=== PATIENT | male | born 1995 | race Caucasian/White ===

== ENCOUNTER 2018-07-31 08:44 | Emergency (ER) | payer BC ==
--- NOTE | 2018-07-31 10:00 | ED ---
Back Pain HPI - General Chief Complaint: Back Pain/Injury Stated Complaint: Lower back pain Time Seen by Provider: 07/31/18 09:24 Source: patient, RN notes reviewed Limitations: no limitations - History of Present Illness Initial Comments: 23-year-old male presents emergency department tingling of low back pain. Patient states on present for last 1 week. Patient states he feels like he stepped over a box carrying his baby's car seat and states that he twisted. Patient states that he has no radicular pain. Denies any bowel bladder incontinence or retention. Denies any abdominal pain. He states he's been placing heat and ice which has been helping. Patient denies fever, chills. Patient has no history of back pain. - Related Data Home Medications Medication Instructions Recorded Confirmed Naproxen Sodium [Aleve] 220 - 440 mg PO Q12H PRN 07/31/18 07/31/18 Previous Rx's Medication Instructions Recorded Cyclobenzaprine [Flexeril] 10 mg PO TID PRN #15 tab 07/31/18 Ibuprofen [Motrin] 600 mg PO Q8HR PRN #30 tab 07/31/18 Allergies Allergy/AdvReac Type Severity Reaction Status Date / Time No Known Allergies Allergy Verified 07/31/18 08:55 Review of Systems ROS Statement: Those systems with pertinent positive or pertinent negative responses have been documented in the HPI. ROS Other: All systems not noted in ROS Statement are negative. Past Medical History Past Medical History: No Reported History History of Any Multi-Drug Resistant Organisms: None Reported Past Surgical History: Orthopedic Surgery Additional Past Surgical History / Comment(s): left knee ACL Past Psychological History: No Psychological Hx Reported Smoking Status: Current every day smoker Past Alcohol Use History: Occasional Past Drug Use History: None Reported General Exam Limitations: no limitations General appearance: alert, in no apparent distress Head exam: Present: atraumatic, normocephalic, normal inspection Eye exam: Present: normal appearance, PERRL, EOMI. Absent: scleral icterus, conjunctival injection, periorbital swelling Neck exam: Present: normal inspection, full ROM. Absent: tenderness, meningismus, lymphadenopathy Respiratory exam: Present: normal lung sounds bilaterally. Absent: respiratory distress, wheezes, rales, rhonchi, stridor Cardiovascular Exam: Present: regular rate, normal rhythm, normal heart sounds. Absent: systolic murmur, diastolic murmur, rubs, gallop, clicks GI/Abdominal exam: Present: soft, normal bowel sounds. Absent: distended, tenderness, guarding, rebound, rigid Extremities exam: Present: normal inspection, full ROM, normal capillary refill , other (Lower extremity strength equal bilaterally). Absent: tenderness, pedal edema, joint swelling, calf tenderness Back exam: Present: full ROM, tenderness (Left low back), paraspinal tenderness. Absent: vertebral tenderness Neurological exam: Present: reflexes normal. Absent: motor sensory deficit Skin exam: Present: warm, dry, intact, normal color. Absent: rash Course Vital Signs 07/31/18 08:53 Temperature 98.4 F Pulse Rate 85 Respiratory 20 Rate Blood Pressure 140/69 O2 Sat by Pulse 99 Oximetry Medical Decision Making - Medical Decision Making 23-year-old male presents emergency from for low back pain. Patient is a lumbar strain. X-rays were obtained and does show some degenerative disc disease. Patient will follow-up with MRI if no improvement. Patient will be treated with anti-inflammatories and muscle relaxers. Return parameters were discussed. Disposition Clinical Impression: Strain of lumbar region Disposition: HOME SELF-CARE Condition: Stable Instructions: Acute Low Back Pain (ED) Additional Instructions: Please return to the Emergency Department if symptoms worsen or any other concerns. Prescriptions: Cyclobenzaprine [Flexeril] 10 mg PO TID PRN #15 tab PRN Reason: Muscle Spasm Ibuprofen [Motrin] 600 mg PO Q8HR PRN #30 tab PRN Reason: Pain Is patient prescribed a controlled substance at d/c from ED?: No Referrals: None,Stated [Primary Care Provider] - 1-2 days Rebeca Mojica DO [Doctor of Osteopathic Medicine] - 1-2 days Time of Disposition: 10:55
--- NOTE | 2018-07-31 10:15 | XR ---
Lumbosacral spine HISTORY: Low back pain 5 views of the lumbosacral spine There is a mild spinal curvature which could be positional. Lumbar vertebral bodies show preserved he ight, alignment, and bone mineralization. 6 nonrib-bearing lumbar segments are noted. No evident spon dylolysis. Loss of disc height present at the lower lumbar spine. IMPRESSION: There may be some underlying disc desiccation, degenerative disc disease, lumbar MRI may be of benefit.
[2018-07-31] MEDS ORDERED: ACET/COD 300 MG/30 MG STARTER PACK 6 TAB BTL PO STA (10:55)
[2018-07-31 11:12] VITALS: BP 142/69; PULSE 77; RESP 18; TEMP 98.2
== END 2018-07-31 11:12 | disposition home or self-care (01) ==
LOC: EC 08:44
DX: S39.012A Strain of muscle, fascia and tendon of lower back, initial encounter (principal); M51.36 Other intervertebral disc degeneration, lumbar region; F17.200 Nicotine dependence, unspecified, uncomplicated; X50.1XXA Overexertion from prolonged static or awkward postures, initial encounter
CPT/HCPCS: 72110; 99283